=== PATIENT | male | born 1950 | race Caucasian/White ===

== ENCOUNTER → 2018-03-30 | Outpatient (CLI) | payer OTHER, BC ==
[2018-03-30 08:04] LABS: HEMATOCRIT 48.8 % (42.0-52.0); HEMOGLOBIN 16.7 gm/dL (14.0-18.0); MCH 30.2 pg (26.0-34.0); MCHC 34.1 g/dL (28.0-37.0); MCV 88.3 fL (80.0-100.0); RBC 5.53 mil/uL (4.50-6.00); RDW 13.9 % (10.5-14.5); WBC 5.9 thou/uL (4.0-11.0)
[2018-03-30 08:15] LABS: CALCIUM 8.8 mg/dL (8.5-10.1); CREATININE 1.1 mg/dL (0.7-1.3); POTASSIUM 3.5 mmol/L (3.5-5.1)
[2018-03-30 08:21] LABS: ALBUMIN 4.2 g/dL (3.4-5.0); TOTAL BILIRUBIN 0.7 mg/dL (<0.1-1.0); TOTAL PROTEIN 6.5 g/dL (6.4-8.2)
== END ==
LOC: CAT 07:30
PROVIDERS: Internal Medicine Cardiovascular Disease
DX: I25.10 Atherosclerotic heart disease of native coronary artery without angina pectoris (principal); M47.894 Other spondylosis, thoracic region

== ENCOUNTER 2018-05-25 09:06 | Observation (INO) | payer OTHER, BC ==
[~2018-05-25] VITALS: Ht 177.8 cm; Wt 113.4 kg
--- NOTE | ~2018-05-25 | P ---
[facility] [place] [address] PROCEDURE REPORT Name: RED SALAZAR [facility] #: [facility] [id number] Admission: 05/25/18 Attend Phys: Omega Lewis MD Discharge: Date of : 52 Report #: [id number] THIS REPORT FOR: //name// CC: Tevin Lewis PREOPERATIVE DIAGNOSIS: Atrial fibrillation. POSTOPERATIVE DIAGNOSIS: Atrial fibrillation. PROCEDURES PERFORMED: 1. AFib ablation, CPT code 61524. 2. 3D mapping, CPT code 19348. 3. Intracardiac echo, CPT code 07961. HISTORY OF PRESENT ILLNESS: The patient is a 67-year-old with history of atrial fibrillation. His initial ablation was canceled due to findings of a left atrial appendage thrombus. He was anticoagulated with Pradaxa and aspirin was added to his anticoagulation regimen and a repeat CELSA showed no clot. He is here for AFib ablation. ANESTHESIA: The patient underwent general anesthesia with no anesthesia related complications. PROCEDURE: The patient underwent informed consent where we discussed the details of the procedure including the risk, which include, but not limited to bleeding, infection, vascular damage as well as stroke or AK. He understood these risks and was willing to proceed. The patient was brought to the EP laboratory in a fasting and sedated state and prepped and draped in a sterile fashion. Next, I obtained access to the right femoral vein times 3, placing an 8-Afghan, 9-Afghan and 7-Afghan locking sheath using the modified Seldinger technique. Next, under fluoroscopy, I placed a decapolar catheter easily in the coronary sinus and an ice catheter was placed into the right atrium. At baseline, the patient was in atrial fibrillation today with a ventricular rate of 580 milliseconds, QRS duration of 100 milliseconds, and QT interval of 370 milliseconds. Next, using intracardiac ultrasound, I created a detailed 3D geometry of the left atrium using CartoSound. There was evidence of a left superior and a left inferior pulmonary vein. On CT, these appear to be separate, but on intracardiac ultrasound, it almost appeared that there was a common ostium. I think that they were probably not sharing a common ostium, but were very close together. There was a right superior and a right inferior pulmonary vein and there was a very large left atrial appendage. Next, the patient was systemically heparinized and a transseptal was performed with an SL1 sheath and a [place] needle. His transseptal was straightforward. I was able to perform my transseptal at an inferior and anterior location. The SL1 sheath cross the septum easily. I then placed a Lasso and obtained a 3D geometry of [address] [address] PROCEDURE REPORT Name: RED SALAZAR Room #: LOLA Gonzalez#: [id number] Admission: 05/25/18 Attend Phys: Omega Lewis MD Discharge: Date of : 52 Report #: [id number] the left atrium. Using this, it appeared that there was a small left inferior pulmonary vein with a separate ostium from the left inferior pulmonary vein. Next, I exchanged the SL1 sheath for the cryo sheath and placed the cryoballoon into the left atrium. I performed 2 freezes in the right superior pulmonary vein, both of 4 minutes' duration. There was still some signals noted after I had done this. I decided to proceed with isolation of the left inferior vein as these veins were very close together. I performed two 4-minute freezes in the left inferior pulmonary vein. The first freeze resulted in marked slowing of the atrial signals in this vein and the second freeze resulted in isolation of the left inferior vein within 10 seconds. I then checked both of the left-sided veins and they appear to be isolated. I then turned my attention to the right superior pulmonary vein and I performed a 4-minute freeze followed by 3-minute freeze. The vein isolated within 45 seconds of the first freeze. The second freeze was more of an atrial ablation to try and widen the ablation lesion set. I then turned my attention to the right inferior pulmonary vein. I did two 4-minute freezes in this vein as well. This vein isolated within 204 seconds during the first freeze. There was never any compromised to the phrenic nerve with these freezes. I then turned my attention back to the left-sided veins and the patient was cardioverted back to sinus rhythm. All the veins appear to be isolated, but there was some question as to whether the left superior was isolated. I performed an additional three freezes in this vein and tried to take care of the ridge between the left superior pulmonary vein and the left atrial appendage. Of note, there was very large left atrial appendage signals and the left atrium was very large in nature. When I would pace using the Achieve, there appeared to be conduction, but I thought this was likely related to capture of the appendage. I therefore placed the Lasso catheter and performed a voltage map of the left atrium and all the veins appear to be isolated and with pacing via the Lasso, there was no conduction from the left superior pulmonary vein. As such, all veins were isolated and the voltage map was consistent with a wide circumferential ablation of the left atrium. The patient underwent a quick EP study and AV block was noted at less than 270 milliseconds. As such, the procedure was concluded. Sheaths were pulled to the right atrium. I used intracardiac ultrasound to verify that there was no pericardial effusion. Next, the patient received systemic protamine and once the ACT was within acceptable range, catheters and sheaths were pulled and hemostasis was obtained. The patient awoke neurologically and hemodynamically intact with no complications and no significant bleeding. CONCLUSIONS: Successful AFib ablation with isolation of all the veins. By: [id number] 1526 Omega Lewis MD /nt
[2018-05-25 10:09] LABS: ABSOLUTE NEUTROPHILS 3.7 thou/uL (1.4-8.2); BASOPHILS 0.9 % (0.0-2.0); EOSINOPHILS 2.1 % (0.0-3.0); HEMATOCRIT 45.4 % (42.0-52.0); HEMOGLOBIN 15.6 gm/dL (14.0-18.0); LYMPHOCYTES 24.6 % (24.0-44.0); MCH 29.8 pg (26.0-34.0); MCHC 34.4 g/dL (28.0-37.0); MCV 86.6 fL (80.0-100.0); MONOCYTES 7.6 % (1.0-8.0); PLATELET COUNT 163 thou/uL (150-400); POLYS 64.8 % (36.0-66.0); RBC 5.24 mil/uL (4.50-6.00); RDW 14.3 % (10.5-14.5); WBC 5.7 thou/uL (4.0-11.0)
[2018-05-25 10:21] LABS: APTT 25.9 Seconds (24.5-32.8); INR 1.1; PROTIME 11.3 Seconds (9.3-11.4)
[2018-05-25 10:24] LABS: CREATININE 1.1 mg/dL (0.7-1.3); POTASSIUM 3.6 mmol/L (3.5-5.1)
[2018-05-25 10:33] VITALS: BP 146/92
[2018-05-25] MEDS ORDERED: ASPIRIN325 PO (10:42)
[2018-05-25] MEDS ORDERED: VITAMIN D3400 UNIT PO (10:43)
[2018-05-25] MEDS ORDERED: CO-ENZYME Q-1010 MG PO (10:44)
[2018-05-25] MEDS ORDERED: B12INJ PO (10:46)
[2018-05-25] MEDS ORDERED: PRADAXA150 MG PO (10:47)
[2018-05-25] MEDS ORDERED: TRIGLIDE160 M1 PO (10:48)
[2018-05-25] MEDS ORDERED: DOXYCYCLINE 10100 MG PO (10:48)
[2018-05-25] MEDS ORDERED: FINASTERIDE5 MG PO (10:49)
[2018-05-25] MEDS ORDERED: LOSARTAN-HCTZ1 EAC1 PO (10:50)
[2018-05-25] MEDS ORDERED: FISH OIL 1,001000 M2 PO (10:50)
[2018-05-25] MEDS ORDERED: TOPROL XL100 MG PO (10:51)
[2018-05-25] MEDS ORDERED: FLAGYL500 MG TOP (10:54)
[2018-05-25] MEDS ORDERED: PROTONIX40 M1 PO (10:55)
[2018-05-25 16:14] VITALS: BP 134/92
[2018-05-25 19:00] VITALS: BP 151/95
[2018-05-25 19:50] VITALS: BP 144/84
[2018-05-25 23:29] VITALS: BP 125/88
[2018-05-26 04:48] VITALS: BP 145/98
[2018-05-26 06:59] VITALS: BP 152/89
[2018-05-26] MEDS ORDERED: FLECAINIDE ACET50 M1 PO (08:02)
[2018-05-26 08:44] VITALS: BP 152/89
[2018-05-26 08:59] VITALS: BP 152/89
== END 2018-05-26 10:00 | disposition home or self-care (01) ==
LOC: CATH 09:06 → 2N 16:07 → ENTRNSPT 05-26 09:15 → EDTRNSPTSTS 05-26 09:18 → 2N 05-26 10:00
PROVIDERS: Internal Medicine Cardiovascular Disease
DX: I48.91 Unspecified atrial fibrillation (principal); F17.210 Nicotine dependence, cigarettes, uncomplicated; Z72.89 Other problems related to lifestyle
CPT/HCPCS: 62110; 62900; 65020; 65040; 65043; 70005

== ENCOUNTER → 2018-08-01 | Outpatient (CLI) | payer OTHER, BC ==
[~2018-08-01] MED LIST: ASPIRIN325 PO; B12INJ PO; CO-ENZYME Q-1010 MG PO; DOXYCYCLINE 10100 MG PO; FINASTERIDE5 MG PO; FISH OIL 1,001000 M2 PO; FLAGYL500 MG TOP; FLECAINIDE ACET50 M1 PO; LOSARTAN-HCTZ1 EAC1 PO; PRADAXA150 MG PO; PROTONIX40 M1 PO; TOPROL XL100 MG PO; TRIGLIDE160 M1 PO; VITAMIN D3400 UNIT PO
--- NOTE | ~2018-08-01 | SLE ---
[facility] [place] [address] [place] [address] POLYSOMNOGRAPHY STUDY Name: RED SALAZAR Room #: REG [facility]#: [id number] Admission: 08/01/18 Attend Phys: Omega Lewis MD Discharge: Date of : 52 Report #: [id number] THIS REPORT FOR: //name// CC: Tevin Lewis MD DATE OF SERVICE: 08/01/2018 ATTENDING PHYSICIAN: Dr. Omega Lewis. The patient is 67 years old who weighs 250 pounds with a BMI of 35.9. The patient's Mcarthur score was only 3. The patient underwent a diagnostic sleep study at [facility]. During the night study, the patient spent 502 minutes in bed and slept for 384 minutes with a sleep efficiency of 76%. Sleep latency was 33.5 minutes with a REM latency of 78.5 minutes. Overall sleep architecture showed increased stage 1 sleep, which was 39% of total sleep time. Normal stage 2 sleep, absent slow wave and reduced REM sleep, which was 10% of the total sleep time. During the night of the study, the patient had no obstructive central or mixed apneas. There were 15 hypopneas. The patient's apnea hypopnea index was only 2.3 per hour. The patient's REM index was 10.4 per hour and a supine index of 0 per hour. EKG monitoring revealed an average heart rate of 65 beats per minute. No sustained arrhythmias were observed. Occasional PVCs seen. PLMS were not observed. Nocturnal oximetry study revealed an average oxygen saturation of 94% with the lowest of 85%. Only 0.5 minutes were spent at an oxygen saturation of less than 89%. Due to low AHI, the patient did not meet the split night criteria for CPAP initiation. IMPRESSION: 1. No clinically significant sleep disorder breathing. The patient's AHI for the entire night was only 2.3 per hour. 2. No clinically significant nocturnal hypoxia. 3. No clinically significant periodic limb movements. RECOMMENDATIONS: 1. The patient did not meet the split night criteria for CPAP initiation. [facility] [address] [place] [address] POLYSOMNOGRAPHY STUDY Name: MARIERED Rina Room #: REG [facility]#: [id number] Admission: 08/01/18 Attend Phys: Omega Lewis MD Discharge: Date of : 52 Report #: [id number] 2. Avoid MANAGER POLICY depressants. 3. Weight loss is strongly advised. <ELECTRONICALLY SIGNED> By: Surinder Oakley MD 08/03/18 0720 00 08 Surinder Oakley MD /nt
== END ==
LOC: SLEEPLAB 21:15
DX: G47.10 Hypersomnia, unspecified (principal); I48.91 Unspecified atrial fibrillation; I10 Essential (primary) hypertension; E78.5 Hyperlipidemia, unspecified; K21.9 Gastro-esophageal reflux disease without esophagitis

== ENCOUNTER → 2018-08-13 | Outpatient (CLI) | payer OTHER, BC ==
--- NOTE | ~2018-08-13 | EKG ---
[address] [address] ELECTROCARDIOGRAM REPORT Name: RED SALAZAR Room #: [facility]#: [id number] Admission: 08/13/18 Attend Phys: Omega Lewis MD Discharge: Date of : 52 Report #: [id number] THIS REPORT FOR: //name// [facility] Test Date: 2018-08-13 Test Time: 10:30:37 Pat Name: RED SALAZAR Department: Room: Gender: M It Project Coordinator: BULL : 1950 Requested By: Omega Lewis Order Number: [id number] MD: Omega Lewis Measurements Intervals [place] Rate: 66 P: 6 PA: 201 QRS: 29 QRSD: 122 T: -4 QT: 473 QTc: 496 Interpretive Statements Sinus rhythm Nonspecific intraventricular conduction delay Compared to ECG 07/27/2018 13:00:35 Atrial premature complex(es) no longer present Electronically Signed On 08-14-2018 9:01:12 CDT by Omega Lewis [email or web address] <ELECTRONICALLY SIGNED> By: Omega Lewis MD 08/14/18 0901 1030 1030 Omega Lewis MD /EPI
== END | disposition home or self-care (01) ==
LOC: CATH 07:17
DX: I48.91 Unspecified atrial fibrillation (principal); Z53.8 Procedure and treatment not carried out for other reasons

== ENCOUNTER → 2019-06-29 | Outpatient (CLI) | payer OTHER, BC ==
--- NOTE | ~2019-06-29 | P ---
[facility] [place] [address] [place] [address] PROCEDURE REPORT Name: RED SALAZAR Rina Room #: REG Lakia Gonzalez#: [id number] Admission: 06/29/19 Attend Phys: Omega Lewis MD Discharge: Date of : 52 Report #: [id number] THIS REPORT FOR: //name// CC: Tevin Lewis PROCEDURE: Implantable loop recorder insertion. PREOPERATIVE DIAGNOSES: 1. Palpitations. 2. Atrial fibrillation. DESCRIPTION OF PROCEDURE: The patient underwent informed consent. We discussed the details of the procedure including the risks, which include but not limited to bleeding, infection. He understood these risks and is willing to proceed. He was brought to the procedure suite. He was prepped and draped in a sterile fashion. I injected lidocaine at the incision site. Incision was made, device was injected under the skin. A single layer of suture was performed at the incision site. Surgical glue was placed at the incision. A dressing was placed. There were no procedure related complications. The implanted device was a Confirm Rx, model #3500, serial #[id number]. R-waves were 0.62 millivolts. The device was programmed to detect AFib lasting more than 5 minutes, pauses lasting more than 5 seconds. CONCLUSIONS: Successful insertion of an implantable loop recorder. By: 1305 2201 Omega Lewis MD /nt
[2019-06-29 10:11] VITALS: BP 131/81
[2019-06-29 11:53] VITALS: BP 131/81
== END | disposition home or self-care (01) ==
LOC: CATH 09:48
DX: I48.91 Unspecified atrial fibrillation (principal); R00.2 Palpitations; Z79.82 Long term (current) use of aspirin; Z79.01 Long term (current) use of anticoagulants; Z79.899 Other long term (current) drug therapy; Z98.890 Other specified postprocedural states

== ENCOUNTER → 2019-10-14 | Outpatient (CLI) | payer OTHER, BC ==
--- NOTE | 2019-10-14 11:02 | EXE ---
[facility] [address] [place] [address] STRESS ECHOCARDIOGRAM Name: RED SALAZAR Rina Room #: REG [facility]#: [id number] Admission: 10/14/19 Attend Phys: Alo Borrego MD Discharge: Date of : 52 Report #: [id number] THIS REPORT FOR: //name// APPROVED REPORT Study performed: 10/14/2019 10:00:20 Exam: Stress Echocardiogram Indication: Afib Patient Location: Out-Patient Stress Nurse: Eileen Fine RN Status: routine Ht: 5 ft 10 in HR: 63 bpm BP: 134/90 mmHg Rhythm: NSR Medical History Medical History: Cardioversion and ablation Medications: Listed on worksheet Allergies: No known drug allergies Cardiac Risk Factors: HTN, Hyperlipidemia, obesity. Procedure The patient underwent an Exercise Stress Test using the Irving Protocol. Blood pressure, heart rate, and EKG were monitored. An Echocardiogram was performed by photonics technician in four stages in quad fashion. At peak stress, four selected images were obtained and placed side by side with resting images for comparison. Stress Test Details Stress Test: Exercise stress testing was performed using a Irving protocol. HR Resting HR: 63 bpm Max Heart Rate (APMHR): 152 bpm Max HR Achieved: 134 bpm Target HR (85% APMHR): 129 bpm % of APMHR: 88 Recovery HR: 82 bpm HR response to stress: Normal HR response to stress BP Resting BP: 134/90 mmHg Max BP: 168/94 mmHg Recovery BP: 140/82 mmHg BP response to stress: Normal blood pressure response to [facility] [address] [place] [address] STRESS ECHOCARDIOGRAM Name: MARIERED Rina Room #: [facility] [id number] Admission: 10/14/19 Attend Phys: Alo Borrego MD Discharge: Date of : 52 Report #: [id number] stress. ECG Resting ECG: Sinus Rhythm Stress ECG: Sinus Rhythm, nonspecific ST-T abnormalities ST Change: Non-ischemic Clinical Reason for Termination: Dyspnea Stress Symptoms: Dyspnea Exercise duration: 8 min 29 sec Highest Stage Achieved: 3 Exercise capacity: 10.40 METs Pre-Stress Echo The resting Echocardiogram showed normal left ventricular contractility with an estimated Ejection Fraction of about 55%. The resting echocardiogram demonstrated normal wall motion in all wall segments. Normal wall motion in all segments on baseline images. Post-Stress Echo The stress Echocardiogram showed normal left ventricular contractility with an estimated Ejection Fraction of about 65-70%. Compared to rest, there were no stress-induced wall motion abnormalities. Normal augmentation of wall motion in all segments on post stress images. Clinical No clinical or ECG evidence for ischemia. Conclusion Clinical Response: Non-ischemic Exercise Capacity: Average Stress ECG Response: Non-ischemic Stress Echo Images: Non-ischemic The left ventricle is normal in size and wall thickness in both the rest and stress images. Other Information Study Quality: Adequate <Conclusion> [facility] [address] [place] [address] STRESS ECHOCARDIOGRAM Name: MARIERED Rina Room #: REG [facility].#: [id number] Admission: 10/14/19 Attend Phys: Alo Borrego MD Discharge: Date of : 52 Report #: [id number] The left ventricle is normal in size and wall thickness in both the rest and stress images. <ELECTRONICALLY SIGNED> By: Alo Borrego MD 10/14/19 1102 01 01 Alo Borrego MD /INF
== END ==
LOC: CV 09:21 → CAT 09:21 → CV 11:32
DX: Z13.6 Encounter for screening for cardiovascular disorders (principal); I48.91 Unspecified atrial fibrillation; E78.00 Pure hypercholesterolemia, unspecified; I25.10 Atherosclerotic heart disease of native coronary artery without angina pectoris

== ENCOUNTER → 2019-12-14 | Outpatient (CLI) | payer OTHER, BC | LOC: SJCVC 12:00 | DX: I21.19 ST elevation (STEMI) myocardial infarction involving other coronary artery of inferior wall (principal); R94.31 Abnormal electrocardiogram [ECG] [EKG]; I48.0 Paroxysmal atrial fibrillation; K21.9 Gastro-esophageal reflux disease without esophagitis; I10 Essential (primary) hypertension; E78.5 Hyperlipidemia, unspecified; Z79.899 Other long term (current) drug therapy; Z87.891 Personal history of nicotine dependence ==

== ENCOUNTER → 2020-04-13 | Outpatient (CLI) | payer OTHER, BC | LOC: SJCVC 13:05 | DX: R94.31 Abnormal electrocardiogram [ECG] [EKG] (principal); I48.19 Other persistent atrial fibrillation; I10 Essential (primary) hypertension; R60.9 Edema, unspecified; E78.00 Pure hypercholesterolemia, unspecified ==

== ENCOUNTER → 2020-10-17 | Outpatient (CLI) | payer OTHER, BC | LOC: SJCVCIMAG 08:18 | PROVIDERS: ATTEND Internal Medicine Cardiovascular Disease | DX: R94.31 Abnormal electrocardiogram [ECG] [EKG] (principal); E78.00 Pure hypercholesterolemia, unspecified; I48.91 Unspecified atrial fibrillation; I10 Essential (primary) hypertension; I25.10 Atherosclerotic heart disease of native coronary artery without angina pectoris; Z79.899 Other long term (current) drug therapy; Z87.891 Personal history of nicotine dependence ==

== ENCOUNTER → 2020-11-07 | Outpatient (CLI) | payer OTHER, BC | LOC: SJCVC 08:51 | PROVIDERS: ATTEND Internal Medicine Cardiovascular Disease | DX: E78.00 Pure hypercholesterolemia, unspecified (principal); E78.5 Hyperlipidemia, unspecified; I48.91 Unspecified atrial fibrillation; I10 Essential (primary) hypertension; K21.9 Gastro-esophageal reflux disease without esophagitis ==

== ENCOUNTER → 2020-12-27 | Outpatient (CLI) | payer OTHER, BC | LOC: SJCVC 13:07 | PROVIDERS: ATTEND Internal Medicine Cardiovascular Disease | DX: R94.31 Abnormal electrocardiogram [ECG] [EKG] (principal); I48.0 Paroxysmal atrial fibrillation; I12.9 Hypertensive chronic kidney disease with stage 1 through stage 4 chronic kidney disease, or unspecified chronic kidney disease; N18.9 Chronic kidney disease, unspecified; E78.5 Hyperlipidemia, unspecified; K21.9 Gastro-esophageal reflux disease without esophagitis; N40.0 Benign prostatic hyperplasia without lower urinary tract symptoms; Z98.890 Other specified postprocedural states; Z88.8 Allergy status to other drugs, medicaments and biological substances; Z79.899 Other long term (current) drug therapy; Z87.891 Personal history of nicotine dependence; Z82.49 Family history of ischemic heart disease and other diseases of the circulatory system ==

== ENCOUNTER → 2021-05-09 | Outpatient (CLI) | payer OTHER, BC | LOC: SJCVC 10:04 | PROVIDERS: ATTEND Internal Medicine Cardiovascular Disease | DX: R94.31 Abnormal electrocardiogram [ECG] [EKG] (principal); I49.49 Other premature depolarization; I48.0 Paroxysmal atrial fibrillation; I25.10 Atherosclerotic heart disease of native coronary artery without angina pectoris; R60.9 Edema, unspecified; E78.00 Pure hypercholesterolemia, unspecified; K21.9 Gastro-esophageal reflux disease without esophagitis; N40.0 Benign prostatic hyperplasia without lower urinary tract symptoms; I12.9 Hypertensive chronic kidney disease with stage 1 through stage 4 chronic kidney disease, or unspecified chronic kidney disease; N18.9 Chronic kidney disease, unspecified; E78.5 Hyperlipidemia, unspecified; Z98.890 Other specified postprocedural states; Z79.899 Other long term (current) drug therapy; Z87.891 Personal history of nicotine dependence; Z82.49 Family history of ischemic heart disease and other diseases of the circulatory system ==

== ENCOUNTER → 2021-10-16 | Outpatient (CLI) | payer OTHER, BC | LOC: SJCVC 15:04 | PROVIDERS: ATTEND Internal Medicine Cardiovascular Disease | DX: R94.31 Abnormal electrocardiogram [ECG] [EKG] (principal); I48.0 Paroxysmal atrial fibrillation; I49.1 Atrial premature depolarization; I12.9 Hypertensive chronic kidney disease with stage 1 through stage 4 chronic kidney disease, or unspecified chronic kidney disease; N18.9 Chronic kidney disease, unspecified; K21.9 Gastro-esophageal reflux disease without esophagitis; E78.00 Pure hypercholesterolemia, unspecified; E78.5 Hyperlipidemia, unspecified; R06.00 Dyspnea, unspecified; Z88.8 Allergy status to other drugs, medicaments and biological substances; Z79.899 Other long term (current) drug therapy; Z72.89 Other problems related to lifestyle; Z87.891 Personal history of nicotine dependence ==

== ENCOUNTER → 2021-11-06 | Outpatient (CLI) | payer OTHER, BC ==
[2021-11-06 08:22] VITALS: BP 112/72
--- NOTE | 2021-11-07 12:28 | P ---
[address] [place] [address] PROCEDURE REPORT Name: RED SALAZAR Room #: REG KERRY Gonzalez#: [id number] Admission: 11/06/21 Attend Phys: Omega Lewis MD Discharge: Date of : 52 Report #: [id number] THIS REPORT FOR: cc: Tevin River MD, Herbert M. MD Couchonnal, Luis F. MD ~ DATE OF SERVICE: 11/06/2021 IMPLANTABLE LOOP RECORDER REMOVAL AND INSERTION PROCEDURES: 1. Explantation of an implantable loop recorder. 2. Implantation of a loop recorder. DESCRIPTION OF PROCEDURE: The patient underwent informed consent. He was then prepped and draped in a standard fashion. I injected lidocaine at the incision site. An incision was made. The device was extracted. Once removed, the new device was inserted, tested and found to be functioning normally and a suture was placed and surgical glue was placed to outer skin layer. A dressing was placed. There were no procedure related complications. The explanted device was a [employer] clinical haematologist. The newly implanted device was a MedOLED-T LINQ, model number LNQ11, serial number [id number]. CONCLUSION: Successful implantation of a new loop recorder. <ELECTRONICALLY SIGNED> By: Omega Lewis MD 11/07/21 1228 1005 1133 MD jeremy King
== END | disposition home or self-care (01) ==
LOC: CATH 06:55
PROVIDERS: ATTEND Internal Medicine Cardiovascular Disease
DX: Z45.09 Encounter for adjustment and management of other cardiac device (principal); I48.91 Unspecified atrial fibrillation; Z98.890 Other specified postprocedural states; Z79.899 Other long term (current) drug therapy

== ENCOUNTER → 2021-12-25 | Outpatient (CLI) | payer OTHER, BC | LOC: SJCVC 11:13 | PROVIDERS: ATTEND Internal Medicine Cardiovascular Disease | DX: I48.0 Paroxysmal atrial fibrillation (principal); I10 Essential (primary) hypertension; R93.1 Abnormal findings on diagnostic imaging of heart and coronary circulation; R60.9 Edema, unspecified; E78.00 Pure hypercholesterolemia, unspecified; E78.5 Hyperlipidemia, unspecified; Z98.890 Other specified postprocedural states; Z88.8 Allergy status to other drugs, medicaments and biological substances; Z79.899 Other long term (current) drug therapy; Z87.891 Personal history of nicotine dependence ==